=== PATIENT | female | born 1995 | race Caucasian/White ===

== ENCOUNTER 2024-03-05 21:37 | Emergency (ER) | payer MEDICAID ==
[~2024-03-05] VITALS: Ht 165.1 cm; Wt 73.0 kg
[2024-03-05 21:42] VITALS: O2SAT 98
[2024-03-05] MEDS: DEXAMETHASONE 10 MG/ML VIAL IV ONE (22:08)
[2024-03-05] MEDS: SODIUM CHLORIDE 0.9% 1,000 ML IV ONE (22:08)
[2024-03-05] MEDS ORDERED: EPIN0.3P3 IM (23:30)
[2024-03-06] VITALS: BP 102/64; PULSE 96; RESP 26; TEMP 97.9
== END 2024-03-06 00:42 | disposition home or self-care (01) ==
LOC: ER 21:37
DX: T78.2XXA Anaphylactic shock, unspecified, initial encounter (principal); R21 Rash and other nonspecific skin eruption; X58.XXXA Exposure to other specified factors, initial encounter
CPT/HCPCS: 99291; 96374; 96361; J1100; J7030